=== PATIENT | female | born 1980 ===

== ENCOUNTER 2018-02-22 18:06 | Emergency (ER) | payer SELFPAY ==
[2018-02-22 19:03] VITALS: BP 135/90; PULSE 91; RESP 16; TEMP 98.9; O2SAT 100
[2018-02-22] MEDS ORDERED: Sodium Chloride 0.9% 1,000 ML IV STA (19:33)
--- NOTE | 2018-02-22 21:43 | ED PDOC ---
HPI: Headache Time Seen by Provider: 02/22/18 19:18 Chief Complaint (Nursing): Headache Chief Complaint (Provider): Headache History Per: Patient History/Exam Limitations: no limitations Onset/Duration Of Symptoms: Hrs Current Symptoms Are (Timing): Still Present Pain Scale Rating Of: 7 Additional Complaint(s): Patient is a 37 y/o female with a PMHx of asthma, seasonal allergies, and migraines who presents to the ED for evaluation of persistent headaches, ongoing since last night. The patient reports that she went to sleep but woke up with the headache in the morning that persisted all day. Patient took Tylenol at 15:00 today, however, that provided minimal relief. Patient reports the quality of her headache to be a 7/10. In addition, to the headache the patient has been experiencing generalized malaise, body aches, a fever, chills, and nausea. The patient denies vomiting, diarrhea, palpitations, or SOB. PCP: Dr. Lo Carter Past Medical History Reviewed: Historical Data, Nursing Documentation, Vital Signs Vital Signs: Last Vital Signs Temp 98.9 F 02/22/18 18:59 Pulse 91 H 02/22/18 18:59 Resp 16 02/22/18 18:59 BP 135/90 02/22/18 18:59 Pulse Ox 100 02/22/18 18:59 - Medical History PMH: Asthma - Surgical History Surgical History: No Surg Hx - Family History Family History: States: Unknown Family Hx - Immunization History Hx Influenza Vaccination: Yes - Home Medications Home Medications: Ambulatory Orders Medication Instructions Recorded Acetaminophen/Butalbital/Caf 1 tab PO Q4H PRN 7 Days tab 02/22/18 [Fioricet] Ibuprofen [Motrin] 600 mg PO Q6 PRN 7 Days tab 02/22/18 - Allergies Allergies/Adverse Reactions: Allergies Allergy/AdvReac Type Severity Reaction Status Date / Time No Known Allergies Allergy Verified 02/22/18 18:59 Review of Systems ROS Statement: Except As Marked, All Systems Reviewed And Found Negative Constitutional: Positive for: Fever (Subjective), Chills, Malaise, Other (Body Aches, Feels Ill) Cardiovascular: Negative for: Palpitations Respiratory: Negative for: Shortness of Breath Gastrointestinal: Positive for: Nausea Neurological: Positive for: Headache. Negative for: Dizziness Physical Exam - Reviewed Nursing Documentation Reviewed: Yes Vital Signs Reviewed: Yes - Physical Exam Appears: Positive for: Uncomfortable Head Exam: Positive for: ATRAUMATIC, NORMAL INSPECTION, NORMOCEPHALIC Skin: Positive for: Normal Color Eye Exam: Positive for: Normal appearance, EOMI ENT: Positive for: Pharyngeal Erythema (Mild) Neck: Positive for: Normal (Full ROM with flexion and extension laterally) Cardiovascular/Chest: Positive for: Regular Rate, Rhythm Respiratory: Positive for: Normal Breath Sounds Gastrointestinal/Abdominal: Positive for: Normal Exam Extremity: Positive for: Normal ROM, Other (Normal Examining Officer Strength in Upper, Bilateral Extremity) Neurologic/Psych: Positive for: Alert, Oriented. Negative for: Facial Droop (Cheeks Puffy) - ECG O2 Sat by Pulse Oximetry: 100 (RA) Pulse Ox Interpretation: Normal Medical Decision Making Medical Decision Making: Time: 1929 Plan: NS 1L IV Reglan 10 mg IVP Toradol 30 mg IVP Influenza A B Rapid Strep Group A Antigen Scribe Attestation: Documented by Shahzad Pitts, acting as a scribe for Michela CLAYTON. Provider Scribe Attestation: All medical record entries made by the Scribe were at my direction and personally dictated by me. I have reviewed the chart and agree that the record accurately reflects my personal performance of the history, physical exam, medical decision making, and the department course for this patient. I have also personally directed, reviewed, and agree with the discharge instructions and disposition. 21:30: re-assessed, pain has improved and overall feeling better. Patient informed that test results negative for Influenza or Strep. Likely viral illness. Return instructions given. Disposition - Clinical Impression Clinical Impression: Migraine, Viral illness - Patient ED Disposition Is Patient to be Admitted: No Counseled Patient/Family Regarding: Studies Performed, Diagnosis, Need For Followup, Rx Given - Disposition Referrals: [facility] [place] [Outside] Disposition: Routine/Home Disposition Time: 22:00 Condition: STABLE Additional Instructions: F/u with your primary care doctor for further treatment of migraines. Stay hydrated. Take Ibuprofen and Tylenol for body aches. Take Fioricet for migraines. Return to ER if you are unable to tolerate fluids or have visual changes, weakness. Prescriptions: Acetaminophen/Butalbital/Caf [Fioricet] 1 tab PO Q4H PRN 7 Days tab PRN Reason: Headache Ibuprofen [Motrin] 600 mg PO Q6 PRN 7 Days tab PRN Reason: Pain, Moderate (4-7) Instructions: Migraine Headache (DC) Forms: [employer] (Turkmen) Print Language: MEXICAN
== END 2018-02-22 22:02 | disposition home or self-care (01) ==
LOC: H.ER 18:06
DX: G43.909 Migraine, unspecified, not intractable, without status migrainosus (principal); B34.9 Viral infection, unspecified
CPT/HCPCS: 87070; 87430; 87804; 96361; 96374; 96375; 99283; J1885; J2765; J7030